=== PATIENT | male | born 1980 | race Caucasian/White ===

== ENCOUNTER 2018-10-10 00:23 | Emergency (ER) | payer SELFPAY ==
[~2018-10-10] VITALS: Wt 88.9 kg
[2018-10-10] MEDS ORDERED: IBUPROFEN 600 MG TAB PO ONE (04:00)
[2018-10-10] MEDS ORDERED: hydrOXYzine HCL 25 MG TAB PO ONE (04:00)
[2018-10-10] MEDS ORDERED: CETI10CA PO (04:35)
[2018-10-10] MEDS ORDERED: IBUP-1542 PO (04:35)
--- NOTE | 2018-10-10 04:36 | ERD ---
ER Documentation Chief Complaint Chief Complaint DX WITH PERITONSILAR ABSCESS AT CLINIC HPI 38-year-old male presenting with complaints of fever, painful oral lesions, and rash. He states his symptoms started about 2-3 days ago. He is complaining of throat pain and left-sided neck pain and swelling. He denies any sick contacts. He states that the rash initially started on the left side of his neck and then he noticed on his extremities, and then his trunk. The rash is pruritic but not painful. He denies any contacts or recent travel. 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 He does not know his vaccination status. He has children at home who do not have any similar symptoms. does not have any similar symptoms. ROS All systems reviewed and are negative except as per history of present illness. Medications Home Meds Active Scripts Cetirizine Hcl* (Zyrtec*) 10 Mg Capsule, 10 MG PO DAILY, #10 CAP Prov:ANNMARIE BERMAN MD 10/10/18 Ibuprofen* (Motrin*) 600 Mg Tab, 600 MG PO Q6H PRN for PAIN AND OR ELEVATED TEMP, #30 TAB Prov:ANNMARIE BERMAN MD 10/10/18 Allergies Allergies: Coded Allergies: No Known Allergy (Unverified , 10/10/18) PMhx/Soc Medical and Surgical Hx: pt denies Medical Hx, pt denies Surgical Hx Hx Alcohol Use: No Hx Substance Use: No Hx Tobacco Use: Yes Smoking Status: Former smoker FmHx Family History: No diabetes Physical Exam Vitals Vital Signs Date Temp Pulse Resp B/P (MAP) Pulse Ox O2 O2 Flow FiO2 Time Delivery Rate 10/10/18 100.6 84 16 111/64 96 Room Air 04:44 (80) 10/10/18 100.9 100 20 175/85 97 00:41 (115) Physical Exam Const: No acute distress Head: Atraumatic Eyes: Normal Conjunctiva ENT: Normal External Ears, Nose and Mouth. Posterior oropharynx does not show any tonsillar swelling or any exudates. He has multiple oral ulcers on the inside of cheeks, tongue, and inner lips. Neck: Full range of motion. No meningismus. Left cervical lymphadenopathy. Resp: Clear to auscultation bilaterally Cardio: Regular rate and rhythm, no murmurs Abd: Soft, non tender, non distended. Normal bowel sounds Skin: Scattered papular rash on trunk and extremities. There is a clustered papular eruption in the left neck. Back: No midline or flank tenderness Ext: No cyanosis, or edema Neur: Awake and alert, no facial asymmetry, normal speech, moving all extremities Psych: Normal Mood and Affect Results 24 hrs Current Medications Medications Dose Sig/Michael Start Time Status Last (Trade) Ordered Route PRN Stop Time Admin Dose Reason Admin Hydroxyzine 25 mg ONCE ONCE 10/10/18 DC 10/10/18 HCl PO 04:00 03:59 (Atarax) 10/10/18 04:01 Ibuprofen 600 mg ONCE ONCE 10/10/18 DC 10/10/18 (Motrin) PO 04:00 03:59 10/10/18 04:01 Procedures/MDM Patient is presenting with a nonspecific rash that is pruritic as well as oral ulcers with fever. I suspect a viral etiology for the stomatitis and the cervical lymphadenopathy. However the cause of his pruritic rash is unclear at this time. I did consider measles and testing was sent for this. At this time I have a low suspicion for bacterial infection. I explained all of this to the patient. Recommended ibuprofen and hydroxyzine for his symptoms. Close outpatient follow-up recommended. Return precautions discussed. Patient's blood pressure was elevated (>120/80) but appears stable without evidence of hypertension emergency or urgency. The patient was counseled about the risks of hypertension and urged to pursue outpatient monitoring and therapy within a week with their primary care physician. Departure Diagnosis: Primary Impression: Rash and other nonspecific skin eruption Additional Impressions: Left cervical lymphadenopathy Cervical adenopathy Stomatitis, ulcerative Condition: Stable Patient Instructions: Aphthous Ulcer, Dermatitis, Non-Specific [facility]errals: [facility] Usted se babb hecho un examen mdico de control que le indica que no est en cori condicin que requiera tratamiento urgente en el Departamento de Emergencia. Un estudio ms profundo y el tratamiento de kapoor condicin pueden esperar sin ningn riesgo hasta que usted sea atendida/o en el consultorio de kapoor mdico o cori clnica. Es responsabilidad suya arreglar cori tomas para el seguimiento del charissa. MANEJO DE CONDICIONES NO URGENTES EN EL FUTURO 1) Si usted tiene un mdico de atencin primaria: Usted debera llamar a kapoor mdico de atencin primaria antes de venir al departamento de emergencia. Despus de las horas de consultorio, kapoor doctor o kapoor asociado/a est disponible por telfono. El mdico o enfermero de radha en el servicio telefnico puede asesorarle por ricardo medio para atender el problema, o charissa contrario se puede programar cori tomas. 2) Si usted no tiene un mdico de atencin primaria: Llame al mdico o clnica de referencia que aparece abajo tommy las horas de consultorio para hacer cori tomas para que le vean. CLINICAS: [facility] [phone] [phone] [facility] [phone] [facility] [phone] [facility] [phone] [id number] [facility] [phone] Additional Instructions: If your symptoms are worsening, return to the ER. Follow-up with your primary care doctor if you are not improving as expected. If you have more than 5 days of fever, you have to be seen again. ANNMARIE BERMAN MD Oct 10, 2018 04:36
[2018-10-10 04:44] VITALS: BP 111/64; PULSE 84; RESP 16
== END 2018-10-10 04:46 | disposition home or self-care (01) ==
LOC: E/R 00:23
DX: L29.9 Pruritus, unspecified (principal); R59.0 Localized enlarged lymph nodes; K12.1 Other forms of stomatitis; Z87.891 Personal history of nicotine dependence
CPT/HCPCS: 86765; 99283